=== PATIENT | female | born 1995 | race Caucasian/White ===

== ENCOUNTER → 2017-10-19 | Outpatient (CLI) | payer OTHER ==
--- NOTE | 2017-10-19 15:22 | RADIOLOGY IMAGING REPORT ---
[place] [facility] [place] NAME: Jess Murrieta : 1995 MR: [id number] V: [id number] EXAM DATE: ORDERING PHYSICIAN: KENNY GREWAL TECHNOLOGIST: Location: [facility] Patient: Jess Murrieta : 1995 Visit/Account:[id number] Date of Sevice: 10/19/2017 EXAMINATION: Brain MRI without IV contrast History: History of confusion, headache. COMPARISON STUDIES: none TECHNIQUE: Multi-planar, multi-sequence brain MRI was performed without IV contrast administration. FINDINGS: Paranasal sinuses / mastoid air cells: negative White matter: negative Ventricles / sulci / fissures: negative Masses / hemorrhage / midline shift: negative Extra-axial spaces: negative Calvarium and scalp: negative Vascular structures: negative Sagittal midline structures: negative Orbits: negative Visualized upper neck: negative IMPRESSION: Normal MRI of the brain. No evidence of a mass, acute ischemia or hemorrhage. Report Dictated By: Jamey Nava MD at 10/19/2017 3:13 PM Report E-Signed By: Jamey Nava MD at 10/19/2017 3:16 PM [id number]
== END ==
LOC: MRI 14:20
PROVIDERS: ATTEND Emergency Medicine Sports Medicine
DX: R51 Headache (principal); R41.0 Disorientation, unspecified
CPT/HCPCS: 70551